=== PATIENT | male | born 1980 | race Caucasian/White ===

== ENCOUNTER 2021-01-06 10:52 | Emergency (ER) | payer BC, SELFPAY ==
--- NOTE | ~2021-01-06 | XR_ITS ---
EXAMINATION: XR foot RT min 3V DATE: 01/06/2021 11:30 INDICATION: Right foot pain, initial encounter TECHNIQUE: Dorsoplantar, lateral, and 2 oblique views of the right foot were obtained. COMPARISON: None. FINDINGS: There is an acute, traumatic, comminuted, open fracture of the fourth distal phalanx. The f racture extends to the distal interphalangeal joint. Soft tissue swelling surrounds the fracture. The remaining osseous structures are unremarkable. IMPRESSION: 1. Comminuted open fracture of the fourth distal phalanx. Reviewed, dictated and finalized at location A.
[2021-01-06 11:20] VITALS: BP 151/115; PULSE 77; RESP 16; TEMP 36.8; O2SAT 100
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
[2021-01-06] MEDS: HYDROcodone/acetaminophen (*CRX) 5-325 MG TABLET 2 TAB PO (13:29)
[2021-01-06 13:59] VITALS: TEMP 36.8
== END 2021-01-06 15:20 | disposition home or self-care (01) ==
PROVIDERS: Emergency Provider Nurse Practitioner
DX: S92.534B Nondisplaced fracture of distal phalanx of right lesser toe(s), initial encounter for open fracture (principal); F90.9 Attention-deficit hyperactivity disorder, unspecified type; W20.8XXA Other cause of strike by thrown, projected or falling object, initial encounter
CPT/HCPCS: 12002; 73630; 99284; A9270